=== PATIENT | female | born 1975 | race Caucasian/White ===

== ENCOUNTER 2024-01-09 23:26 | Observation (INO) | payer OTHER, MEDICAID ==
[2024-01-10 01:07] VITALS: BMI 28.0
[2024-01-10] MEDS ORDERED: Acetaminophen 325 MG TAB PO PRN (01:09)
[2024-01-10] MEDS ORDERED: cloNIDine 0.1 MG TAB PO PRN (01:50)
[2024-01-10] MEDS: Lactated Ringer's 1,000 ML IV SCH ×2 (02:16→04:37)
[2024-01-10 02:49] LABS: #Basophils 0.03 10x3/uL (0.0-0.2); #Eosinphils Less than 0.03 10x3/uL (0.0-0.7); %Basophils 0.2 % (0.0-1.0); %Eosinophils 0.1 % (0.0-10.0); %Lymphocytes 17.7 % (21.0-51.0); %Monocytes 6.6 % (0.0-10.0); %Neutrophils 75.1 % (42.0-75.0); Hematocrit 42.5 % (36.0-47.0); Hemoglobin 15.2 g/dL (12.0-16.0); Mean Corpuscular HGB CONC 35.8 g/dL (32.0-36.0); Mean Corpuscular Hemoglobin 31.4 pg (27.0-31.0); Mean Corpuscular Volume 87.8 fL (78.0-98.0); Mean Platelet Volume 9.7 fL (7.4-10.4); Platelet Count 276 10x3/uL (130-400); RBC Distribution Width 11.9 % (11.5-14.5); Red Blood Cell (RBC) Count 4.84 mill/uL (4.20-5.40)
[2024-01-10 03:00] LABS: Lactic Acid 0.88 mmol/L (0.5-2.2)
[2024-01-10 03:02] LABS: Hemoglobin A1c 4.8 % (4.0-6.0)
[2024-01-10 03:35] LABS: ALT (SGPT) 11 U/L (8-55); AST (SGOT) 21 U/L (5-34); Albumin 3.9 g/dL (3.5-5.0); Alkaline Phosphatase 89 U/L (40-110); Anion Gap 14 mmol/L (10-20); BUN (Urea Nitrogen) 7 mg/dL (7.0-18.7); Bilirubin, Total 1.2 mg/dL (0.2-1.2); Calc. Creatinine Clearance 112 mL/min (70-130); Calcium 8.9 mg/dL (7.8-10.44); Carbon Dioxide 17 mmol/L (22-29); Chloride 106 mmol/L (98-107); Estimated GFR 110; Globulin 3.3 g/dL (2.4-3.5); Glucose 117 mg/dL (70-105); Magnesium 1.9 mg/dL (1.6-2.6); Potassium 3.5 mmol/L (3.5-5.1); Protein, Total 7.2 g/dL (6.0-8.3); Sodium 133 mmol/L (136-145)
[2024-01-10] MEDS ORDERED: clonazePAM 0.5 MG TAB PO PRN (09:21)
[2024-01-10] MEDS: clonazePAM 0.5 MG TAB PO SCH (10:00)
[2024-01-10] MEDS: Ondansetron PF 4 MG/2 ML Vial IVP PRN (16:32)
[2024-01-11 04:48] VITALS: BP 154/85; TEMP 98.6
== END 2024-01-11 05:00 | disposition home or self-care (01) ==
LOC: 2SE 23:26 → UNDOADMOB 23:26 → 2SE 01-10 01:09
PROVIDERS: ADMIT Internal Medicine; ATTEND Family Medicine
DX: R06.02 Shortness of breath (principal); F41.0 Panic disorder [episodic paroxysmal anxiety]; F31.9 Bipolar disorder, unspecified; R11.2 Nausea with vomiting, unspecified; R19.7 Diarrhea, unspecified; M62.82 Rhabdomyolysis; R79.89 Other specified abnormal findings of blood chemistry; R74.02 Elevation of levels of lactic acid dehydrogenase [LDH]; I10 Essential (primary) hypertension; F19.90 Other psychoactive substance use, unspecified, uncomplicated; E87.6 Hypokalemia; Z79.899 Other long term (current) drug therapy
CPT/HCPCS: 80053; 82550; 83036; 83605; 83735; 85025; J2405; J7120; 36415; 96374; G0378